=== PATIENT | male | born 1965 | race Caucasian/White ===

== ENCOUNTER → 2016-06-14 | Day surgery (SDC) | payer BC ==
[2016-05-31 11:29] VITALS: Ht 175.3 cm; Wt 75.0 kg
[~2016-06-14] VITALS: Ht 175.3 cm; Wt 75.0 kg
[~2016-06-14] MED LIST: CHOL100010 PO; LIDOCAINE HCL 2% 2 ML VIAL (20MG/ML) ONE; MELA1TAB49 PO; MIDAZOLAM HCL 1 MG/ML 2ML VIAL ONE; ONDANSETRON INJ 2 MG/ML 2 ML VIAL ONE; PROPOFOL IV EMULSION 10 MG/ML 20 ML VIAL IV ONE; VITA400C3 PO
--- NOTE | 2016-06-14 11:46 | Endo History and Physical ---
History & Physical Date of Service: Jun 14, 2016. Chief Complaint: Screening Referring Physician: Coe History of Present Illness 50 yo CM who presents for screening colonoscopy. Past Medical History Asthma Past Surgical History Hx Cardiac Surgery: No Hx Internal Defibrillator: No Hx Pacemaker: No Hx Abdominal Surgery: No Hx of Implantable Prosthesis: No Hx Cancer Surgery: No Hx Thoracic Surgery: No Hx Orthopedic: No Hx Urinary Tract Surgery: No Family History None Social History Smoking Status: Never Smoker Hx Substance Use: No Hx Alcohol Use: Yes (OCCASIONALLY) Allergies Coded Allergies: No Known Allergies (Unverified , 06/14/16) Current Medications Reported Home Medications Medications Dose Route/Sig Max Daily Dose Days Date Category Melatonin 3 Mg Tab 1 Tab PO HS PRN 05/31/16 Reported Vitamin E 400 Iu (Vitamin E) 400 Unit Cap 2 Cap PO QAM 05/31/16 Reported Vitamin D (Cholecalciferol) 1,000 Unit Tab 1 Tab PO QAM 05/31/16 Reported Vital Signs Weight (Kilograms): 75 Height (Feet): 5 Height (Inches): 9 Date Time Temp Pulse Resp B/P Pulse Ox O2 Delivery O2 Flow Rate FiO2 06/14/16 10:23 36.7 61 18 132/76 97 Room Air Physical Exam General Appearance: WD/WN, no apparent distress Respiratory/Chest: Auscultation: breath sounds normal Cardiovascular: Heart Auscultation: RRR Abdomen: Bowel Sounds: normal Inspection & Palpation: soft, non-distended, no tenderness, guarding & rebound Assessment and Plan Assessment: 50 yo CM who presents for screening colonoscopy. Plan: Proceed with colonoscopy.
--- NOTE | 2016-06-14 11:59 | Discharge Instructions ---
Endoscopy Patient Instructions Date / Procedure(s) Performed Jun 14, 2016. Colonoscopy Allergy Information Coded Allergies: No Known Allergies (Unverified , 06/14/16) Discharge Date / Findings Jun 14, 2016. Colon polyp Rectal polyps Internal hemorrhoids Medication Instructions OK to resume all medications today as prescribed Reported Home Medications Medications Dose Route/Sig Max Daily Dose Days Date Category Melatonin 3 Mg Tab 1 Tab PO HS PRN 05/31/16 Reported Vitamin E 400 Iu (Vitamin E) 400 Unit Cap 2 Cap PO QAM 05/31/16 Reported Vitamin D (Cholecalciferol) 1,000 Unit Tab 1 Tab PO QAM 05/31/16 Reported Provider Instructions Activity Restrictions - No exercising or heavy lifting for 24 hours. - Do not drink alcohol the day of the procedure. - Do not drive a car or operate machinery until the day after the procedure. - Do not make any important decisions or sign important papers in 24 hours after the procedure. Following Day: - Return to full activity which may include returning to work/school. Diet Start your diet with liquids and light foods (jello, soup, juice, toast). Then eat your usual diet if not nauseated. Treatment For Common After Affects For mild abdominal pain, bloating, or excessive gas: - Rest - Eat lightly - Lie on right side Follow-Up Information Follow-up with Carolin as scheduled Anesthesia Information What You Should Know You have had a procedure that required some medicine to reduce anxiety and discomfort. This treatment is called moderate sedation. After receiving the treatment, you may be sleepy, but you will be able to breathe on your own. The effects of the treatment may last for several hours. Follow these instructions along with Activity/Diet recommendations noted above: * Do NOT do anything where dizziness or clumsiness would be dangerous. * Rest quietly at home today, then you can be up and about tomorrow. * Have a responsible person stay with you the rest of today. * You may have had an I.V. today. If so, you may take the dressing off later today. Recommendations Call your doctor if: * Trouble breathing * Continuous vomiting for more than 24 hours * Temperature above 101 degrees * Severe abdominal pain or bloating * Pain not relieved by pain medicine ordered * There is increased drainage or redness from any incision * A large amount of rectal bleeding greater than 2-3 tablespoons. (If you had a polyp/s removed or have hemorrhoids, a small amount of blood - from the rectum is to be expected.) * You have any unanswered questions or concerns. IN THE EVENT OF A SERIOUS EMERGENCY, GO TO THE NEAREST EMERGENCY ROOM Your discharge instructions were prepared by provider Joaquin Melvin. Patient Instructions Signature Page Ebenezer Florin Patient (or Guardian) Signature/Date: I have read and understand the instructions given to me by my caregivers. Caregiver/RN/Doctor Signature/Date: The above-named patient and/or guardian has received patient instructions on this date. + Original Patient Signature Page (only) stays with chart. Please make copy for patient.
--- NOTE | 2016-06-14 12:05 | GI REPORT ---
Procedure Date: 06/14/2016 11:02 AM Procedure: Colonoscopy Indications: Screening for colorectal malignant neoplasm Medicines: Monitored Anesthesia Care Complications: No immediate complications. Estimated Blood Loss: Estimated blood loss: none. Procedure: Pre-Anesthesia Assessment: - Prior to the procedure, a History and Physical was performed, and patient medications and allergies were reviewed. The patient's tolerance of previous anesthesia was also reviewed. The risks and benefits of the procedure and the sedation options and risks were discussed with the patient. All questions were answered, and informed consent was obtained. Prior Anticoagulants: The patient has taken no previous anticoagulant or antiplatelet agents. ASA Grade Assessment: II - A patient with mild systemic disease. After reviewing the risks and benefits, the patient was deemed in satisfactory condition to undergo the procedure. After I obtained informed consent, the scope was passed under direct vision. Throughout the procedure, the patient's blood pressure, pulse, and oxygen saturations were monitored continuously. The scope was introduced through the anus and advanced to the terminal ileum. The colonoscopy was performed without difficulty. The patient tolerated the procedure well. The quality of the bowel preparation was good. The terminal ileum, ileocecal valve, appendiceal orifice, and rectum were photographed. Findings: Two sessile polyps were found in the rectum and in the ascending colon. The polyps were 3 to 4 mm in size. These polyps were removed with a cold snare. Resection and retrieval were complete. A 7 mm polyp was found in the rectum. The polyp was sessile. The polyp was removed with a hot snare. Resection and retrieval were complete. Non-bleeding internal hemorrhoids were found during retroflexion. The hemorrhoids were small. Impression: - Two 3 to 4 mm polyps in the rectum and in the ascending colon, removed with a cold snare. Resected and retrieved. - One 7 mm polyp in the rectum, removed with a hot snare. Resected and retrieved. - Non-bleeding internal hemorrhoids. Recommendation: - Resume previous diet. - Continue present medications. - Repeat colonoscopy for surveillance based on pathology results. - Return to primary care physician as previously scheduled. Joaquin Melvin DO 06/14/2016 12:05:10 PM This report has been signed electronically. Note Initiated On: 06/14/2016 11:02 AM I attest to the content of the Intraoperative Record and orders documented therein, exceptions below
--- NOTE | 2016-06-14 12:17 | Anesthesiology Progress Note ---
Anesthesia Post Op Note Date & Time Jun 14, 2016 at 12:17 Vital Signs Pain Intensity: 0 Vital Signs Past 12 Hours Date Time Temp Pulse Resp B/P Pulse Ox O2 Delivery O2 Flow Rate FiO2 06/14/16 12:06 69 16 112/71 98 Room Air 06/14/16 10:23 36.7 61 18 132/76 97 Room Air Notes Mental Status: alert / awake / arousable, participated in evaluation Pt Amnestic to Procedure: Yes Nausea / Vomiting: adequately controlled Pain: adequately controlled Airway Patency, RR, SpO2: stable & adequate BP & HR: stable & adequate Hydration State: stable & adequate Anesthetic Complications: no major complications apparent
[2016-06-14 12:27] VITALS: BP 117/74; PULSE 68; O2SAT 98
== END | disposition home or self-care (01) ==
LOC: C.GI 09:34
PROVIDERS: ATTEND Internal Medicine
DX: Z12.11 Encounter for screening for malignant neoplasm of colon (principal); K62.1 Rectal polyp; D12.2 Benign neoplasm of ascending colon; K64.8 Other hemorrhoids; J45.909 Unspecified asthma, uncomplicated; Z68.24 Body mass index [BMI] 24.0-24.9, adult